=== PATIENT | male | born 1975 ===

== ENCOUNTER 2020-04-25 09:50 | Outpatient (CLI) | payer SELFPAY | END 2020-04-25 23:59 | disposition home or self-care (01) | LOC: LAB.R 09:50 | PROVIDERS: ATTEND Physician Assistant | DX: J03.90 Acute tonsillitis, unspecified (principal); Z20.828 Contact with and (suspected) exposure to other viral communicable diseases | CPT/HCPCS: 87070 ==

== ENCOUNTER 2021-04-10 09:30 | Outpatient (CLI) | payer SELFPAY | END 2021-04-10 23:59 | disposition home or self-care (01) | LOC: LAB.S 09:30 | PROVIDERS: ATTEND Physician Assistant Medical | DX: R11.10 Vomiting, unspecified (principal); K52.9 Noninfective gastroenteritis and colitis, unspecified; Z20.822 Contact with and (suspected) exposure to COVID-19 ==